=== PATIENT | male | born 1965 ===

== ENCOUNTER → 2017-07-01 | Outpatient (CLI) | payer OTHER | LOC: COL.RAD 07:21 | DX: M47.812 Spondylosis without myelopathy or radiculopathy, cervical region (principal); M47.814 Spondylosis without myelopathy or radiculopathy, thoracic region ==

== ENCOUNTER → 2017-07-30 | Outpatient (REF) | LOC: WSOH 13:16 | DX: Z00.00 Encounter for general adult medical examination without abnormal findings (principal) ==

== ENCOUNTER → 2017-07-30 | Outpatient (REF) | LOC: WSOH 13:19 | DX: Z02.89 Encounter for other administrative examinations (principal) ==